=== PATIENT | female | born 2000 | race Caucasian/White ===

== ENCOUNTER 2024-03-02 16:57 | Emergency (ER) | payer BC ==
[~2024-03-02] VITALS: Ht 165.1 cm; Wt 56.8 kg
[2024-03-02] MEDS ORDERED: dexAMETHasone 10 MG/ML VIAL IM ONE (17:30)
[2024-03-02] MEDS ORDERED: MEDROL 4MG DOSPA4 MG PO (17:41)
[2024-03-02] MEDS ORDERED: FLEXERIL 1010 MG/TAB PO (17:41)
[2024-03-02] MEDS ORDERED: NORCO 325 MG-51 TAB PO (17:41)
[2024-03-02] MEDS ORDERED: Home HYDROcodone/Acetaminophen 5/325 MG #4 TABS/PACK PO ONE (17:45)
[2024-03-02] MEDS ORDERED: Home Cyclobenzaprine 10 MG #2 TABS/PACK PO ONE (18:00)
[2024-03-02 18:08] VITALS: BP 117/76; PULSE 81; TEMP 98.4
== END 2024-03-02 18:08 | disposition home or self-care (01) ==
LOC: COL.ER 16:57
DX: M54.42 Lumbago with sciatica, left side (principal)
CPT/HCPCS: J1100; J2360